=== PATIENT | female | born 1975 | race Caucasian/White ===

== ENCOUNTER 2018-09-06 15:44 | Emergency (ER) | payer OTHER ==
[~2018-09-06] VITALS: Ht 162.6 cm; Wt 77.1 kg
[2018-09-06] MEDS ORDERED: PEPCID20 MG (16:11)
[2018-09-06] MEDS ORDERED: PEPCID40 MG PO (19:59)
[2018-09-06] MEDS ORDERED: CELECOXIB100 MG PO (19:59)
== END 2018-09-06 20:10 | disposition home or self-care (01) ==
LOC: ER 15:44
DX: R07.89 Other chest pain (principal)

== ENCOUNTER 2019-01-06 14:20 | Emergency (ER) | payer OTHER ==
[~2019-01-06] VITALS: Ht 162.6 cm; Wt 98.4 kg
[~2019-01-06 14:20] MED LIST: CELECOXIB100 MG PO; PEPCID20 MG; PEPCID40 MG PO
== END 2019-01-06 20:11 | disposition home or self-care (01) ==
LOC: ER 14:20
DX: L42 Pityriasis rosea (principal); R21 Rash and other nonspecific skin eruption

== ENCOUNTER 2019-03-14 16:52 | Emergency (ER) | payer OTHER ==
[~2019-03-14] VITALS: Ht 162.6 cm; Wt 93.9 kg
[2019-03-14] MEDS ORDERED: PROTONIX40 M1 (17:18)
== END 2019-03-14 19:42 | disposition home or self-care (01) ==
LOC: ER 16:52
DX: K52.9 Noninfective gastroenteritis and colitis, unspecified (principal)

== ENCOUNTER 2019-06-05 14:45 | Emergency (ER) | payer OTHER ==
[~2019-06-05] VITALS: Ht 162.6 cm; Wt 97.5 kg
[~2019-06-05 14:45] MED LIST changes: +PROTONIX40 M1
== END 2019-06-05 19:01 | disposition home or self-care (01) ==
LOC: ER 14:45
DX: J11.1 Influenza due to unidentified influenza virus with other respiratory manifestations (principal); R06.02 Shortness of breath

== ENCOUNTER 2021-11-08 12:15 | Inpatient (IN) | payer OTHER ==
[~2021-11-08] VITALS: Ht 162.6 cm; Wt 111.1 kg
[2021-11-08] MEDS ORDERED: WELLBUTRIN XL300 MG PO (14:48)
[2021-11-08] MEDS ORDERED: ALDACTONE25 MG PO (14:49)
[2021-11-08] MEDS ORDERED: COMPLETE M9 MG/15 ML PO (14:50)
[2021-11-14] MEDS ORDERED: NAPR500T14 PO (12:49)
[2021-11-14] MEDS ORDERED: Tylenol #3 PO (12:49)
== END 2021-11-14 13:30 | disposition home or self-care (01) | DRG 743 ==
LOC: O/R 11-11 09:36 → OB/GYN 11-11 10:30
PROVIDERS: ADMIT Obstetrics & Gynecology; ATTEND Obstetrics & Gynecology
PROC: 0DNW0ZZ Release Peritoneum, Open Approach (ICD-10-PCS; 2021-11-11)
PROC: 0TJB8ZZ Inspection of Bladder, Via Natural or Artificial Opening Endoscopic (ICD-10-PCS; 2021-11-11)
PROC: 0UT90ZZ Resection of Uterus, Open Approach (ICD-10-PCS; principal; 2021-11-11 14:10)
DX: N80.0 Endometriosis of uterus (principal); N72 Inflammatory disease of cervix uteri; Z20.822 Contact with and (suspected) exposure to COVID-19; N73.6 Female pelvic peritoneal adhesions (postinfective)